=== PATIENT | male | born 1985 | race Caucasian/White ===

== ENCOUNTER 2024-04-06 06:08 | Emergency (ER) | payer OTHER ==
[~2024-04-06] VITALS: Ht 182.9 cm; Wt 90.7 kg
[2024-04-06] MEDS ORDERED: Buprenorphine HCL/Naloxone HCL 8MG-2MG Tab SL ONE (07:25)
[2024-04-06] MEDS ORDERED: SUBOXONE 8 MG-1 EACH SL (07:27)
== END 2024-04-06 07:38 | disposition home or self-care (01) ==
LOC: ER 06:08
DX: Z76.0 Encounter for issue of repeat prescription (principal); F11.91 Opioid use, unspecified, in remission; Z79.899 Other long term (current) drug therapy
CPT/HCPCS: 99281; A9270